=== PATIENT | male | born 2000 | race Caucasian/White ===

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

== ENCOUNTER 2021-05-01 11:53 | Emergency (ER) | payer OTHER ==
[2021-05-01] MEDS ORDERED: MEDROL 4MG DOSEP4 MG PO (12:50)
== END 2021-05-01 14:20 | disposition home or self-care (01) ==
LOC: FER 11:53
DX: T78.40XA Allergy, unspecified, initial encounter (principal); Z88.0 Allergy status to penicillin; X58.XXXA Exposure to other specified factors, initial encounter
CPT/HCPCS: 99282; J1100